=== PATIENT | female | born 1990 | race African-American/Black ===

== ENCOUNTER 2018-09-13 22:28 | Inpatient (IN) | payer MEDICAID ==
[~2018-09-13] VITALS: Ht 165.1 cm; Wt 72.1 kg
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
[2018-09-13 22:48] VITALS: BP 155/95
--- NOTE | 2018-09-13 22:54 | Emergency Room Report ---
History of Present Illness General Chief Complaint: Chest Pain Source: Patient Present Illness HPI Is a 27-year-old female with no past mental history. She presents with chief complaint of chest pain and headache. Onset last night. Fell her heart beating fast. No nausea no vomiting. Pain to the head is to the left occipital area. Throbbing in nature. [place] tightness. No nausea no vomiting. No injury. She said her heart kind of pressure-like. Jesenia symptom 3 weeks ago and was told she had a panic attack. Denies any other complaint. No diaphoresis. No exertional component. No fever or chills. Allergies: Coded Allergies: No Known Allergies (Unverified , 09/13/18) Patient History Past Medical History: none, see triage record, old chart reviewed Past Surgical History: none Pertinent Family History: none Social History: Denies: smoking Last Menstrual Period: 09/10/2018 Now: No Immunizations: other Reviewed Nursing Documentation: PMH: Agreed; PSxH: Agreed Nursing Documentation-PMH Past Medical History: No Stated History Review of Systems Eye: Denies: eye pain, blurred vision ENT: Denies: ear pain, nose congestion, throat swelling Respiratory: Denies: cough, shortness of breath Cardiovascular: Reports: chest pain; Denies: palpitations Gastrointestinal: Denies: abdominal pain, diarrhea, nausea, vomiting Musculoskeletal: Denies: back pain, joint pain Skin: Denies: rash Neurological: Reports: headache; Denies: numbness Endocrine: Denies: increased thirst, increased urine Hematologic/Lymphatic: Denies: easy bruising All Other Systems: negative except mentioned in HPI Physical Exam Vital Signs Date Time Temp Pulse Resp B/P (MAP) Pulse Ox O2 Delivery O2 Flow Rate FiO2 09/13/18 22:36 98.4 99 16 155/95 98 Room Air vitals with high blood pressure Sp02 EP Interpretation: reviewed, normal General Appearance: well appearing, no apparent distress, alert Head: normocephalic, atraumatic Eyes: bilateral eye PERRL, bilateral eye EOMI ENT: hearing grossly normal, normal pharynx Neck: full range of motion, supple, no meningismus Respiratory: chest non-tender, lungs clear, normal breath sounds Cardiovascular #1: regular rate, rhythm, no murmur Gastrointestinal: normal bowel sounds, non tender, no mass, no organomegaly, no bruit, non-distended Musculoskeletal: back normal, gait/station normal, normal range of motion Psychiatric: mood/affect normal Skin: warm/dry Procedures Critical Care Time Critical Care Time Critical care is mandated in this patient who presented with unexplained tachycardia. Patient require my urgent intervention to attenuate the risks of metabolic collapse which may lead to cardiovascular collapse and . Critical care time is 35 minutes excluding any reportable procedure. Critical care time included evaluation, multiple reevaluation, looking at old charts, interpreting laboratory and diagnostic data, discussing case with patient and family and consultants, and charting. Medical Decision Making Diagnostic Impression: Primary Impression: Chest pain Qualified Codes: R07.9 - Chest pain, unspecified Additional Impressions: Headache Qualified Codes: R51 - Headache Sinus tachycardia ER Course Patient with atypical chest pain. Initially heart rate was in the low 100. It is steadily calmed up to the 120s and 130s. EKG just showed a sinus tachycardia. Heart rate also climb up to 150s and 160. I gave her a small dose of adenosine. This only slow down the heart rate a little bit but is still sinus tachycardia. She did respond to Lopressor. She said she felt better after Lopressor. Labs unremarkable. I repeat temperature was normal. No evidence of any fever or infection. Troponin negative. Her thyroid function is normal. CT scan of the chest is negative for PE. EKG showed no evidence of atrial fibrillation or WPW. There is no drug abuse other than marijuana. Patient is not taking any weight loss medication [id number]. Because of this unexplained tachycardia, will admit versus transfer for further workup. I discussed case with Dr. Chang who will admit. Lab Results Impression labs unremarkable EKG Diagnostic Results Rate: normal Rhythm: NSR ST Segments: no acute changes Other Impression EKG #2: Sinus tachycardia at 132. Nonspecific ST changes. EKG #3: Sinus tachycardia at 149. Nonspecific ST changes. EKG #4: Sinus tachycardia at 137. Nonspecific ST changes. EKG #5: Sinus tachycardia at 113. Nonspecific ST changes. ASA given to the pt in ED: No Rhythm Strip Diag. Results EP Interpretation: yes Rate: 100 Rhythm: NSR, no PVC's, no ectopy CT/MRI/US Diagnostic Results CT/MRI/US Diagnostic Results : Imaging Test Ordered: CTA chest Impression normal per radiologist. Last Vital Signs Date Time Temp Pulse Resp B/P (MAP) Pulse Ox O2 Delivery O2 Flow Rate FiO2 09/13/18 22:48 98.4 99 16 155/95 98 Room Air Status: improved Disposition: ADMITTED INPATIENT Condition: Serious Scripts No Active Prescriptions or Reported Meds Bandar Alvarez MD Sep 13, 2018 22:54
[2018-09-13] MEDS ORDERED: Ketorolac 30mg Inj IV ONE (23:00)
[2018-09-13 23:25] LABS: APPEARANCE,URINE SLIGHTLY CLOUDY; BILIRUBIN, URINE NEGATIVE (NEGATIVE); GLUCOSE, URINE (UA) NEGATIVE (NEGATIVE); KETONES,URINE 4+ (NEGATIVE); LEUKOCYTE ESTERASE ,URINE 1+ (NEGATIVE); NITRITE,URINE NEGATIVE (NEGATIVE); PH,URINE 5 (4.5-8.0); PROTEIN,URINE 1+ (NEGATIVE); UROBILINOGEN,URINE NORMAL MG/DL (0.0-1.0)
[2018-09-13 23:28] LABS: COLOR,URINE YELLOW
[2018-09-13 23:31] LABS: BASOPHILS % (AUTO) 1.5 % (0.0-2.0); EOSINOPHILS % (AUTO) 0.2 % (0.0-3.0); HEMATOCRIT 44.9 % (37.0-47.0); HEMOGLOBIN 15.1 G/DL (12.0-16.0); LYMPHOCYTES % (AUTO) 26.5 % (20.0-45.0); MEAN CORPUSCULAR VOLUME 87 FL (80-99); MONOCYTES % (AUTO) 5.1 % (1.0-10.0); NEUTROPHILS % (AUTO) 66.7 % (45.0-75.0); PLATELET COUNT 388 K/UL (150-450); RED BLOOD COUNT 5.17 M/UL (4.20-5.40); RED CELL DISTRIBUTION WIDTH 11.5 % (11.6-14.8); WHITE BLOOD COUNT 11.4 K/UL (4.8-10.8)
[2018-09-13 23:36] LABS: ANION GAP 13 mmol/L (5-15); BLOOD UREA NITROGEN 7 mg/dL (7-18); CARBON DIOXIDE 26 MMOL/L (21-32); CHLORIDE 102 MMOL/L (98-107); CREATININE 0.7 MG/DL (0.55-1.30); POTASSIUM 3.5 MMOL/L (3.5-5.1); SODIUM 140 MMOL/L (136-145)
[2018-09-14] VITALS (7 sets, daily range): BP systolic 111–132; BP diastolic 65–90
[2018-09-14] MEDS ORDERED: LORazepam Inj 2mg/ml 1ml IV ONE (00:30)
[2018-09-14] MEDS ORDERED: Isovue-370 150ml vial INJ PRN (00:45)
[2018-09-14] MEDS ORDERED: Metoprolol 5mg/5ml Inj ONE (02:27)
[2018-09-14] MEDS ORDERED: Metoprolol 5mg/5ml Inj IVP ONE ×2 (02:30→03:15)
[2018-09-14] MEDS ORDERED: Adenosine 6mg/2ml Inj IVP ONE (02:30)
[2018-09-14] MEDS ORDERED: Metoprolol 25mg tab ORAL ONE (03:15)
--- NOTE | 2018-09-14 04:32 | NUR ---
ED Nurse Note: Telephone report given to ANGY Roberto
--- NOTE | 2018-09-14 04:45 | NUR ---
ED Nurse Note: pt sent to tele with mauricio barrera and mauricio hankins pt accompanied by hospital monitor, pt is aox4, on room air, sinus tach, pt skin is intact. pt shows no signs of distress. 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
--- NOTE | 2018-09-14 04:50 | NUR ---
NURSE NOTES: Received patient from ANGY Acevedo from ED via gurney. Patient is awake, alert oriented x4. Patient denies any pain or discomfort. Respiration even and non labored on room air. No sob noted. Oriented to room and unit. On cardiac cath rn showing ST 101bpm. Vitals stable. Bed in lowest position. Bed wheels locked. Call light within reach. All needs attended and met. Called and left a message for Dr. Chang for admission order. Awaiting call back.
--- NOTE | 2018-09-14 07:49 | NUR ---
HAND-OFF: Report given to ANGY Allen.
--- NOTE | 2018-09-14 08:27 | NUR ---
NURSE NOTES: Received report from Tucker TRAVIS. pt in bed and watching tv. Pt on radiation monitor no signs of distress. Bed locked and in lowest position . Call light within reach. Will continue plan of care.
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
--- NOTE | 2018-09-14 10:05 | Diagnostic Imaging Report ---
ndication: Chest pain for 2 days Technique: IV administration nonionic contrast. Spiral acquisitions obtained from the lung bases to the lung apices. Multiplanar and 3-D reconstructions were generated. Total dose length product 925.75 mGycm. CTDIvol(s) 28.38 mGy. Dose reduction achieved using automated exposure control Comparison: none Findings: Pulmonary arterial opacification is somewhat suboptimal and small peripheral emboli could be missed.. No definite filling defects or other findings to suggest acute pulmonary embolus. Normal caliber pulmonary arteries. No evidence of thoracic aortic aneurysm or dissection. There is variant aortic arch anatomy of separate origin of the left vertebral artery off of the aortic arch. No evidence of right ventricular dilatation. Also noted is a separate origin of the right hepatic artery off of the abdominal aorta. The visualized visceral vessels are otherwise unremarkable. The lungs are clear. No infiltrates, effusions, congestion, nodules, or masses are evident. Normal heart size. No evidence of mediastinal or hilar mass or adenopathy. There is evidence of remnant thymic tissue noted. Unremarkable thyroid. No axillary or chest wall mass or adenopathy. The included upper abdominal anatomy is unremarkable. Impression: Negative for evidence of acute pulmonary embolus. No acute process otherwise This agrees with the preliminary interpretation provided overnight by [facility] teleradiology service. The CT scanner at [facility] is accredited by the [employer] and the scans are performed using protocols designed to limit radiation exposure to as low as reasonably achievable to attain images of sufficient resolution adequate for diagnostic evaluation.
--- NOTE | 2018-09-14 11:49 | Initial Psychiatric Evaluation ---
Psychiatry Consultation Psychiatry Consultation Chief Complaint: Chest Pain History of Present Illness: 27-year-old female with no past mental history who came in for cp. the pt was superficial during the eval and when i introduced myself and told the pt that i was the psychiatrist. the pt stated "what is a psychiatrist?" the pts brother in the room described for her. the pt pw target sxs of depressed mood, anhedonia , anxiety and fatigue. the pt is not endorsing any psychotic/manic sxs. the pt agreed to take psychotropic. the pt denied si/hi Allergies: Coded Allergies: No Known Allergies (Unverified , 09/13/18) Past Psychiatric History: no sa no sh never seen a psychiatrist not take psychotropics Medical History: none Substance Abuse History: none Medication History No Active Prescriptions or Reported Meds Patient History History Provided By: Patient, Medical Record, PMD Objective Data Height (Feet): 5 Height (Inches): 5.00 Weight (Pounds): 159 Appearance: no abnormalities noted Behavior Mannerisms: good eye contact Affect: constricted Mood: depressed, anxious Thought Process: goal-directed, coherent Suicidal Ideation: not present Assessment/Plan Problem List: (1) MDD (major depressive disorder) ICD Codes: F32.9 - Major depressive disorder, single episode, unspecified SNOMED: 488997812 (2) Anxiety disorder ICD Codes: F41.9 - Anxiety disorder, unspecified SNOMED: 614375432 Assessment/Plan: remeron 7.5mg po qhs celexa 20mg po qam provided porfirio/Josefina Ling MD Sep 14, 2018 11:49
[2018-09-14] MEDS: Citalopram Hydrobromide 10mg Tab ORAL SCH (12:54)
--- NOTE | 2018-09-14 13:15 | NUR ---
*-* INSURANCE *-* ALL CLINICALS AND REVIEWS HAVE BEEN FAXED TO: [facility]: VICKI Rivera P- [phone] F- [phone]...REVIEW/CLINICAL
--- NOTE | 2018-09-14 19:30 | NUR ---
NURSE NOTES: Received report from Vy Rocha RN. Pt is resting in the bed w/o distress in RA. Family are at the bedside and wanting to talk to PCP. Endorsed that PCP is aware of the needs and putting orders. Pt also mentioned that PCP visited yesterday. SR in the monitor. Pt refused to be flushed on her RAC d/t the disturbing feeling of it. LH IV is patent. Pt was instructed to call for help. Call light and side table are w/in reach. Bed in the lowest, bed alarm on, and breaks are engaged. Will follow plans of care.
--- NOTE | 2018-09-14 21:01 | NUR ---
HAND-OFF: Report given to Zara TRAVIS, pt does not like to take depression meds and does not like IV flush.
[2018-09-15] VITALS: BP 121/81
--- NOTE | 2018-09-15 01:00 | NUR ---
NURSE NOTES: Pt is sleeping in RA w/o distress. SR in the monitor. Will continue to monitor.
[2018-09-15 04:00] VITALS: BP 117/80
--- NOTE | 2018-09-15 06:00 | NUR ---
NURSE NOTES: Dr. Chang visited and report that pt wanted to talk to PCP regarding the plan for her. Doctor verbalized the awareness of the request. NNO.
--- NOTE | 2018-09-15 07:20 | NUR ---
NURSE NOTES: Received report from Zara Bowen RN. Pt in bed asleep. But arousable. No c/o pain. No signs of distress noted. IV RAC 22G, L hand 22G SL intact and patent. Will continue to monitor plan of care.
--- NOTE | 2018-09-15 07:20 | NUR ---
HAND-OFF: Report given to Vy Fowler RN.
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
[2018-09-15 08:00] VITALS: BP 129/65
[2018-09-15] MEDS: Citalopram Hydrobromide 10mg Tab ORAL SCH (09:00)
--- NOTE | 2018-09-15 11:49 | NUR ---
CASE MANAGEMENT:REVIEW 09/15/18 SI: CHEST PAIN. TACHYCARDIA. HEADACHE 98.0 82 18 117/80 99% ON RA IS: TYLENOL PO Q4HRS PRN REMERON PO QHS CELEXA PO QD : TELEMETRY STATUS
[2018-09-15 12:00] VITALS: BP 134/83
--- NOTE | 2018-09-15 12:01 | NUR ---
*-* INSURANCE *-* UPDATED CLINICALS AND REVIEWS HAVE BEEN FAXED TO: [facility]: VICKI Rivera P- [phone] F- [phone]...REVIEW/CLINICAL
[2018-09-15 16:00] VITALS: BP 128/90
[2018-09-15] MEDS ORDERED: LORazepam 1mg tab ORAL SCH (19:15)
--- NOTE | 2018-09-15 20:10 | NUR ---
HAND-OFF: Report given to Oniel rn.Pt remains stable
--- NOTE | 2018-09-15 20:15 | NUR ---
NURSE NOTES: Received report from Vy Fowler RN. Patient in bed AAO X4 with no S/S of acute pain or distress noted. Kept clean, dry, and comfortable. IV line intact and patent SL. Placed on continuous cardiac monitoring per protocol. Safety precaution in place; siderails X2 up, call light within reach, bed in lowest position, breaks and alarm on at all times. needs and wants anticipated and attended. Will continue plan of care and monitor for any changes noted. DC order active per Bethany Chang MD. Can go home only if HR stays below 105.
--- NOTE | 2018-09-15 21:20 | NUR ---
NURSE NOTES: Monitored HR for 20mins and consistently stayed 88-99. Patient cleared DC to home. Belongings checklist done and DC papers signed.
--- NOTE | 2018-09-15 22:16 | Psych Consult Progress Note ---
Psychiatry Progress Note Psychiatry Progress Note Subjective the pt was tearful refused meds Medications Current Medications Medications (Trade) Dose Ordered Sig/Serena Route PRN Reason Start Time Stop Time Status Last Admin Dose Admin Acetaminophen (Tylenol) 650 mg Q4H PRN ORAL Mild Pain/Temp > 100.5 09/15/18 10:28 10/15/18 10:27 09/15/18 10:31 Citalopram Hydrobromide (celeXA) 20 mg DAILY ORAL 09/14/18 12:00 10/14/18 11:59 Iopamidol (Isovue-370 150ml) 150 ml NOW PRN INJ Radiology Procedure 09/14/18 00:45 09/16/18 00:38 Mirtazapine (Remeron) 7.5 mg BEDTIME ORAL 09/14/18 21:00 10/14/18 20:59 Neurological/Psychiatric: Reports: anxiety, depressed, emotional problems Allergies: Coded Allergies: No Known Allergies (Unverified , 09/13/18) Objective Data Height (Feet): 5 Height (Inches): 5.00 Weight (Pounds): 159 General Appearance: WD/WN, alert, overweight, alert oriented x3 Appearance: no abnormalities noted Behavior Mannerisms: good eye contact Mental Status Exam - Affect: constricted Mental Status Exam - Mood: depressed, anxious Speech: clear Mental Status Exam - Thought P: goal-directed Mental Status Exam - Suicidal: not present Assessment/Plan Problem List: (1) MDD (major depressive disorder) ICD Codes: F32.9 - Major depressive disorder, single episode, unspecified SNOMED: 185244993 (2) Anxiety disorder ICD Codes: F41.9 - Anxiety disorder, unspecified SNOMED: 473616547 Status: unchanged Assessment/Plan: remeron 7.5mg po qhs celexa 20mg po qam provided ro/Josefina Ling MD Sep 15, 2018 22:16
--- NOTE | 2018-09-16 05:00 | Discharge Summary ---
DATE OF ADMISSION: 09/13/2018 DATE OF DISCHARGE: 09/15/2018 ADMISSION DIAGNOSES: 1. Possible SVT/tachycardia. 2. Anxiety. DISCHARGE DIAGNOSES: 1. Possible SVT/tachycardia. 2. Anxiety. HOSPITAL COURSE: The patient was admitted with complaints of feeling "unwell." She was noted to be initially tachycardic. She received a dose of adenosine, which did not improve her tachycardia. She received a single dose of metoprolol. She was admitted to rule out for myocardial infarction with serial enzymes and EKG. She had a CT pulmonary angiogram that showed no evidence of any PE. Her thyroid function tests were normal and she was monitored on telemetry. She had no further episodes of tachycardia while on monitor for 48 hours. She was seen in psychiatric consultation because of complaints of anxiety. On discharge, the patient was stable. She has been instructed to return for any recurrent palpitations or tachycardia and have been asked to follow up with her PMD. DISCHARGE MEDICATIONS: None. DIET: Regular diet. ACTIVITIES: Ad-cosmo and as tolerated. Mp Chang M.D. DR: HATTIE JOB#: [id number] CC:
[2018-09-16] MEDS ORDERED: Atenolol 25mg tab ORAL SCH (09:00)
--- NOTE | 2018-09-16 14:22 | NUR ---
*-* INSURANCE *-* DISCHARGE SUMMARY HAS BEEN FAXED TO: [facility]: VICKI Rivera P- [phone] F- [phone]...REVIEW/CLINICAL
--- NOTE | 2018-09-17 00:58 | Cardiology Report ---
APPROVED REPORT EKG Measurement Heart [id number] PA 132P26 [id number] Normal sinus rhythm Normal ECG
== END 2018-09-15 21:25 | disposition home or self-care (01) | DRG 201 ==
LOC: EMR 22:39 → 2E 09-14 03:34 → EDBEDREQ 09-14 03:41 → 2E 09-14 23:14
DX: I47.1 Supraventricular tachycardia (principal); F32.9 Major depressive disorder, single episode, unspecified; F41.9 Anxiety disorder, unspecified
CPT/HCPCS: 36415; 71275; 80048; 80307; 81001; 81025; 84439; 84443; 84484; 85025; 85379; 93005; 93306; 96361; 96374; 96375; 96376; 99291